=== PATIENT | male | born 1980 | race Two or more races ===

== ENCOUNTER 2017-01-19 23:43 | Emergency (ER) | payer SELFPAY ==
[~2017-01-19] VITALS: Ht 167.6 cm; Wt 93.0 kg
[2017-01-20 06:00] VITALS: BP 136/80
== END 2017-01-20 07:37 | disposition home or self-care (01) ==
LOC: ER 23:43
DX: S20.219A Contusion of unspecified front wall of thorax, initial encounter (principal); K76.0 Fatty (change of) liver, not elsewhere classified; W17.89XA Other fall from one level to another, initial encounter; Y93.89 Activity, other specified; Y92.89 Other specified places as the place of occurrence of the external cause; Y99.8 Other external cause status
CPT/HCPCS: 71250; 93005

== ENCOUNTER 2021-04-07 05:37 | Emergency (ER) | payer OTHER ==
[~2021-04-07] VITALS: Ht 170.2 cm; Wt 90.7 kg
[2021-04-07 05:38] VITALS: BP 147/79
[2021-04-07] MEDS ORDERED: ALBUTEROL SULF 2.5 MG/0.5ML(0.5%) NEB SOLN NEB ONE (06:00)
[2021-04-07] MEDS ORDERED: IPRATROPIUM BROM 0.5 MG/2.5ML INH SOL NEB ONE (06:00)
== END 2021-04-07 07:21 | disposition left against medical advice (07) ==
LOC: ER 05:37
DX: R06.02 Shortness of breath (principal); Z53.21 Procedure and treatment not carried out due to patient leaving prior to being seen by health care provider

== ENCOUNTER 2021-04-07 12:00 | Inpatient (IN) | payer OTHER, SELFPAY ==
[~2021-04-07] VITALS: Ht 175.3 cm; Wt 94.2 kg
[2021-04-07] MEDS ORDERED: IPRATROPIUM BROM 0.5 MG/2.5ML INH SOL HHN ONE (12:30)
[2021-04-07] MEDS ORDERED: ALBUTEROL SULF 2.5 MG/0.5ML(0.5%) NEB SOLN HHN ONE (12:30)
[2021-04-07 13:48] LABS: Basophils # (auto) 0 10 ^3/uL (0-0.2); Basophils % (auto) 0.4 % (0.0-2.0); Eosinophils # (auto) 0.4 10 ^3/uL (0-0.8); Eosinophils % (auto) 3.2 % (0.0-7.0); Hematocrit 48.4 % (41.0-53.0); Hemoglobin 16.8 g/dL (13.5-17.5); Lymphocytes # (auto) 1.4 10 ^3/uL (0.4-5.4); Lymphocytes % (auto) 12.3 % (10.0-50.0); Mean Corpuscular Hemoglobin 31.8 pg (28.0-32.0); Mean Corpuscular Hgb Conc. 34.7 g/dL (32.0-36.0); Mean Corpuscular Volume 91.7 fL (80.0-100.0); Monocytes # (auto) 0.6 10 ^3/uL (0-1.3); Monocytes % (auto) 5.9 % (0.0-12.0); Neutrophils # (auto) 8.6 10 ^3/uL (1.6-8.6); Neutrophils % (auto) 78.2 % (37.0-80.0); Nucleated Red Blood Cells % 0.1 %; Red Blood Cells 5.28 10^6/uL (4.5-5.90); Red Cell Distribution Width 13.2 % (11.8-14.3); White Blood Cell 11.1 10^3/uL (4.4-10.8)
[2021-04-07 14:03] LABS: Albumin 3.6 g/dL (3.4-5.0); Calcium 8.6 mg/dL (8.5-10.1); Magnesium 2.5 mg/dL (1.6-2.6); Potassium 3.7 mmol/L (3.5-5.1)
[2021-04-07 14:09] LABS: BUN/Creatinine Ratio 13.2; Bilirubin, Total 0.6 mg/dL (0.2-1.0)
[2021-04-07] MEDS ORDERED: methylPREDNISolone SOD SUCC 125 MG/2 ML VL IV ONE (14:15)
[2021-04-07 16:05] VITALS: BP 123/81
[2021-04-07] MEDS ORDERED: REMDESIVIR PER PHARMACY 0 ML IV SCH (16:15)
[2021-04-07] MEDS ORDERED: NITROGLYCERIN 0.4 MG SL TAB SL PRN (16:15)
[2021-04-07] MEDS ORDERED: MORPHINE SULFATE INJECTION 2 MG/ML SYRG IV PRN (16:15)
[2021-04-07] MEDS: ASCORBIC ACID 1,000 MG TAB PO SCH (17:32)
[2021-04-07] MEDS: CHOLECALCIFEROL (VITD3) 2,000 UNIT CAP/TAB PO SCH (17:32)
[2021-04-07] MEDS: ZINC SULFATE 220mg CAP or TAB PO SCH (17:32)
[2021-04-07] MEDS ORDERED: REMDESIVIR 200 MG in NS 210ml LOADING DOSE ADULT IV ONE (17:45)
[2021-04-07 20:07] LABS: Urine Bacteria NONE SEEN /hpf (None Seen); Urine Blood Negative /uL (Negative); Urine Mucus FEW (None Seen); Urine Specific Gravity 1.018 (1.001-1.035); Urine WBC 1 /hpf (0 - 3)
[2021-04-07] MEDS ORDERED: ALBUTEROL SULF HFA 90MCG INH 200DOSE IN SCH (22:00)
[2021-04-07] MEDS: BUDESONIDE (INHALATION) 180 MCG IH IN SCH (22:00)
[2021-04-07] MEDS ORDERED: BUDESONIDE (INHALATION) 180 MCG IH IN SCH (22:00)
[2021-04-07 23:00] VITALS: BP 128/78
[2021-04-07] MEDS: ENOXAPARIN SOD 40 MG/0.4 ML SYRINGE SC SCH (23:00)
[2021-04-07] MEDS: DOXYCYCLINE 100MG/250ML 250 ML IV SCH (23:01)
[2021-04-07] MEDS: ALBUTEROL SULF HFA 90MCG INH 200DOSE IN PRN (23:09)
[2021-04-08 05:00] VITALS: BP 122/73
[2021-04-08 06:51] LABS: Basophils # (auto) 0 10 ^3/uL (0-0.2); Basophils % (auto) 0.1 % (0.0-2.0); Eosinophils # (auto) 0 10 ^3/uL (0-0.8); Hematocrit 45.4 % (41.0-53.0); Hemoglobin 15.9 g/dL (13.5-17.5); Lymphocytes # (auto) 1.5 10 ^3/uL (0.4-5.4); Lymphocytes % (auto) 12.5 % (10.0-50.0); Mean Corpuscular Volume 91.5 fL (80.0-100.0); Monocytes # (auto) 0.7 10 ^3/uL (0-1.3); Monocytes % (auto) 5.4 % (0.0-12.0); Neutrophils # (auto) 10.1 10 ^3/uL (1.6-8.6); Nucleated Red Blood Cells % 0.1 %; Red Blood Cells 4.97 10^6/uL (4.5-5.90); Red Cell Distribution Width 12.8 % (11.8-14.3); White Blood Cell 12.3 10^3/uL (4.4-10.8)
[2021-04-08 07:29] LABS: Albumin 3.4 g/dL (3.4-5.0); BUN/Creatinine Ratio 24.7; Bilirubin, Total 0.4 mg/dL (0.2-1.0); Calcium 8.6 mg/dL (8.5-10.1); Total Protein 7.4 g/dL (6.4-8.2)
[2021-04-08] MEDS: ALBUTEROL SULF HFA 90MCG INH 200DOSE IN PRN (07:45)
[2021-04-08] MEDS: BUDESONIDE (INHALATION) 180 MCG IH IN SCH ×2 (07:45→21:15)
[2021-04-08 09:00] VITALS: BP 113/73
[2021-04-08] MEDS: CHOLECALCIFEROL (VITD3) 2,000 UNIT CAP/TAB PO SCH (09:12)
[2021-04-08] MEDS: ASCORBIC ACID 1,000 MG TAB PO SCH (09:12)
[2021-04-08] MEDS: ZINC SULFATE 220mg CAP or TAB PO SCH (09:12)
[2021-04-08] MEDS: DOXYCYCLINE 100MG/250ML 250 ML IV SCH ×2 (09:12→22:04)
[2021-04-08] MEDS: ENOXAPARIN SOD 40 MG/0.4 ML SYRINGE SC SCH ×2 (09:13→22:05)
[2021-04-08] MEDS: DexAMETHasone SOD PHOS 10MG/1ML VIAL INJ IV SCH (11:07)
[2021-04-08 13:00] VITALS: BP 122/72
[2021-04-08] MEDS: REMDESIVIR 100mg 100 MG in SODIUM CHL 0.9% 230 ML IV SCH (15:13)
[2021-04-08 17:00] VITALS: BP 120/74
[2021-04-08 22:00] VITALS: BP 136/77
[2021-04-09 05:22] VITALS: BP 105/71
[2021-04-09] MEDS: BUDESONIDE (INHALATION) 180 MCG IH IN SCH ×2 (06:08→20:27)
[2021-04-09] MEDS: ALBUTEROL SULF HFA 90MCG INH 200DOSE IN PRN ×2 (06:08→20:27)
[2021-04-09 09:00] VITALS: BP 111/74
[2021-04-09] MEDS: ASCORBIC ACID 1,000 MG TAB PO SCH (10:33)
[2021-04-09] MEDS: DexAMETHasone SOD PHOS 10MG/1ML VIAL INJ IV SCH (10:33)
[2021-04-09] MEDS: ZINC SULFATE 220mg CAP or TAB PO SCH (10:33)
[2021-04-09] MEDS: CHOLECALCIFEROL (VITD3) 2,000 UNIT CAP/TAB PO SCH (10:33)
[2021-04-09] MEDS: DOXYCYCLINE 100MG/250ML 250 ML IV SCH ×2 (10:33→21:14)
[2021-04-09] MEDS: ENOXAPARIN SOD 40 MG/0.4 ML SYRINGE SC SCH ×2 (10:34→21:14)
[2021-04-09 13:00] VITALS: BP 108/69
[2021-04-09] MEDS: REMDESIVIR 100mg 100 MG in SODIUM CHL 0.9% 230 ML IV SCH (16:28)
[2021-04-09 17:00] VITALS: BP 105/64
[2021-04-09 22:00] VITALS: BP 116/68
[2021-04-10 05:20] VITALS: BP 118/72
[2021-04-10] MEDS: ALBUTEROL SULF HFA 90MCG INH 200DOSE IN PRN ×2 (07:03→22:08)
[2021-04-10] MEDS: BUDESONIDE (INHALATION) 180 MCG IH IN SCH ×2 (07:03→22:08)
[2021-04-10 07:08] LABS: Calcium 8.2 mg/dL (8.5-10.1); Potassium 3.9 mmol/L (3.5-5.1)
[2021-04-10 07:19] LABS: BUN/Creatinine Ratio 19.7; Bilirubin, Total 0.3 mg/dL (0.2-1.0); Total Protein 6.6 g/dL (6.4-8.2)
[2021-04-10 09:25] VITALS: BP 117/74
[2021-04-10] MEDS: CHOLECALCIFEROL (VITD3) 2,000 UNIT CAP/TAB PO SCH (09:36)
[2021-04-10] MEDS: ENOXAPARIN SOD 40 MG/0.4 ML SYRINGE SC SCH ×2 (09:36→21:53)
[2021-04-10] MEDS: ZINC SULFATE 220mg CAP or TAB PO SCH (09:36)
[2021-04-10] MEDS: DexAMETHasone SOD PHOS 10MG/1ML VIAL INJ IV SCH (09:36)
[2021-04-10] MEDS: ASCORBIC ACID 1,000 MG TAB PO SCH (09:36)
[2021-04-10] MEDS: DOXYCYCLINE 100MG/250ML 250 ML IV SCH ×2 (09:36→21:53)
[2021-04-10 13:00] VITALS: BP 127/77
[2021-04-10 16:10] VITALS: BP 127/77
[2021-04-10 16:26] VITALS: BP 111/66
[2021-04-10] MEDS: REMDESIVIR 100mg 100 MG in SODIUM CHL 0.9% 230 ML IV SCH (16:36)
[2021-04-10 22:00] VITALS: BP 133/73
[2021-04-11 05:00] VITALS: BP 107/78
[2021-04-11 07:44] LABS: Albumin 3.2 g/dL (3.4-5.0); BUN/Creatinine Ratio 19.7; Bilirubin, Total 0.3 mg/dL (0.2-1.0); Calcium 8.3 mg/dL (8.5-10.1); Total Protein 6.6 g/dL (6.4-8.2)
[2021-04-11 09:00] VITALS: BP 106/74
[2021-04-11] MEDS ORDERED: DEX4T PO (09:21)
[2021-04-11] MEDS ORDERED: ZINC220T6 PO (09:21)
[2021-04-11] MEDS ORDERED: ALBUAER3 IN (09:21)
[2021-04-11] MEDS ORDERED: ASPI1TAB20 PO (09:21)
[2021-04-11] MEDS ORDERED: CHOL1CAP47 PO (09:21)
[2021-04-11] MEDS ORDERED: ASCO10003 PO (09:21)
[2021-04-11] MEDS: ZINC SULFATE 220mg CAP or TAB PO SCH (10:50)
[2021-04-11] MEDS: DexAMETHasone SOD PHOS 10MG/1ML VIAL INJ IV SCH (10:50)
[2021-04-11] MEDS: ASCORBIC ACID 1,000 MG TAB PO SCH (10:50)
[2021-04-11] MEDS: DOXYCYCLINE 100MG/250ML 250 ML IV SCH (10:50)
[2021-04-11] MEDS: ENOXAPARIN SOD 40 MG/0.4 ML SYRINGE SC SCH (10:51)
[2021-04-11] MEDS: CHOLECALCIFEROL (VITD3) 2,000 UNIT CAP/TAB PO SCH (10:51)
[2021-04-11 12:54] VITALS: BP 111/62
[2021-04-11 13:00] VITALS: BP 111/65
[2021-04-11] MEDS: REMDESIVIR 100mg 100 MG in SODIUM CHL 0.9% 230 ML IV SCH (15:15)
== END 2021-04-11 17:00 | disposition home or self-care (01) | DRG 177 ==
LOC: EDBD 12:00 → ER 12:00 → TELE 16:14 → TELE-EAST 23:16
PROVIDERS: ADMIT Internal Medicine; ATTEND Internal Medicine
PROC: XW033E5 Introduction of Remdesivir Anti-infective into Peripheral Vein, Percutaneous Approach, New Technology Group 5 (ICD-10-PCS; principal; 2021-04-07)
DX: U07.1 COVID-19 (principal); J96.01 Acute respiratory failure with hypoxia; J12.82 Pneumonia due to coronavirus disease 2019; R65.10 Systemic inflammatory response syndrome (SIRS) of non-infectious origin without acute organ dysfunction; Z72.0 Tobacco use
CPT/HCPCS: 36415; 71045; 71250; 80053; 81001; 82728; 83605; 83735; 83880; 84484; 85025; 85379; 87040; 87426; 93005; 94640; 96374; 96375; G0378; J1100; J3490